=== PATIENT | female | born 1975 | race Caucasian/White ===

== ENCOUNTER 2017-01-14 14:21 | Emergency (ER) | payer MEDICAID ==
[2017-01-14 14:52] VITALS: BP 123/92; PULSE 89; RESP 18; TEMP 99.1; O2SAT 93
[2017-01-14 14:52] LABS: COLOR YELLOW; LEUKOCYTE ESTERASE,URINE NEGATIVE (NEGATIVE); NITRITE,URINE NEGATIVE (NEGATIVE)
[2017-01-14 15:04] LABS: BACTERIA 2+ /hpf (NONE SEEN); RBC,URINE 25-50 /hpf (0-3)
--- NOTE | 2017-01-14 15:32 | UCPHY ---
H & P Time Seen by Provider: 01/14/17 15:04 Patient Type: New HPI/ROS: This patient complains of right-sided lumbar back pain. She states that this is achy in nature and she explains that she has some chronic back pain is usually mild was this is currently moderate intensity. She wonders if it may be her kidney that is causing the pain. She notes no clear exacerbating or alleviating factors except that the pain seems to worsen but with forward flexion. ROS: No fevers or chills. She denies any other constitutional symptoms. HEENT : No complaints pulmonary: No cough. Cardiovascular: No complaints. GI: She has some abdominal cramping and diarrhea for weeks the that waxes and wanes. She has no other GI symptoms. She has no abdominal pain. No nausea vomiting. : Currently on her menses which is normal timing for her. She reports chronic mild dysuria with no recent change. Prior to her menses she had her baseline minimal vaginal discharge with no recent change. 10 point ROS is otherwise negative Past Medical/Surgical History: Fibromyalgia Migraines Mixed connective tissue disorder. Smoking Status: Never smoked Physical Exam: General Appearance: Alert, no distress. Eyes: Pupils equal and round no pallor or injection. ENT, Mouth: Mucous membranes moist. Respiratory: There are no retractions, lungs are clear to auscultation. Cardiovascular: Regular rate and rhythm. Gastrointestinal: Abdomen is soft and nontender, no masses, bowel sounds normal. Back: Mild right paraspinous muscular tenderness that reproduces her symptoms. No CVA tenderness is noted. No midline tenderness. Straight leg raise is negative bilaterally. She retains good range of motion in forward flexion but has increased pain in the affected area with back extension. Neurological: Alert. She has no light touch sensory deficits in her lower extremities. She maintains 5/5 strength in great toe dorsiflexion plantar flexion bilaterally and 2+ symmetric patellar and Achilles DTRs bilaterally Skin: Warm and dry, no rashes. Musculoskeletal: Neck is supple nontender. Extremities are symmetrical, full range of motion. Psychiatric: Mood and affect are normal DIFFERENTIAL DIAGNOSIS: After history and physical exam differential diagnosis was considered for low back strain, doubt kidney stone, rule out UTI Constitutional: Initial Vital Signs Temperature (C) 37.3 C 01/14/17 14:49 Heart Rate 89 01/14/17 14:49 Respiratory Rate 18 01/14/17 14:49 Blood Pressure 123/92 H 01/14/17 14:49 O2 Sat (%) 93 01/14/17 14:49 O2 Delivery Mode Room Air Allergies/Adverse Reactions: barium iodide [Barium Iodide] Allergy (Verified 01/14/17 14:47) barium sulfate Allergy (Verified 01/14/17 14:47) beeswax Allergy (Verified 01/14/17 14:47) honey Allergy (Verified 01/14/17 14:47) latex Allergy (Verified 01/14/17 14:47) meperidine HCl [From Demerol] Allergy (Verified 01/14/17 14:47) cashews Allergy (Uncoded 01/14/17 14:47) teo Allergy (Uncoded 01/14/17 14:47) Home Medications: Medication Instructions Recorded Flexeril 5 MG (RX) 11/15/13 Micronor 11/19/13 Cephalexin [Keflex (*)] 500 mg PO TID #21 cap 01/14/17 Methocarbamol [Robaxin 750 mg (*)] 750 - 1,500 mg PO QID PRN #30 tab 01/14/17 MDM/Departure - MDM Diagnostics: Urinalysis reveals findings suggestive of cystitis. She also has bloody urine the think this is attributable to her menses. ED Course/Re-evaluation: Findings are most consistent with low back strain as well as cystitis. I counseled patient regarding this. I demonstrated some stretches for her low back discomfort. - Depart Disposition: Home, Routine, Self-Care Clinical Impression: Cystitis Low back strain Qualifiers: Encounter type: initial encounter Qualified Code(s): S39.012A - Strain of muscle, fascia and tendon of lower back, initial encounter Condition: Good Instructions: Urinary Tract Infection in Women (ED), Low Back Strain (ED) Additional Instructions: DX: Low back strain 2. Bladder infection Plan: Ibuprofen 400-600 mg per 6 hours regularly for the next week then as needed. Methocarbamol muscle relaxants as needed. Tylenol in addition as needed for pain. Starts daily stretches prior to taking muscle relaxants in the morning. 3-5 minutes each of: "Butterfly stretch," "Sphinx stretch", "pigeon stretch", and hamstring stretch. Avoid lifting more than 5-10 pounds until symptoms improve. Keflex antibiotic for the bladder infection. Call your primary care physician for a followup appointment in 3-7 days. Go to the emergency department for worsening of your symptoms despite the treatment plan. Prescriptions: Cephalexin [Keflex (*)] 500 mg PO TID #21 cap Methocarbamol [Robaxin 750 mg (*)] 750 - 1,500 mg PO QID PRN #30 tab PRN Reason: Muscle Spasms Referrals: ROBBIE WAITE,. [Primary Care Provider] - As per Instructions - PQRS PQRS Measurement: NA
== END 2017-01-14 15:44 | disposition home or self-care (01) ==
LOC: CED 14:21
DX: N30.00 Acute cystitis without hematuria (principal); S39.012A Strain of muscle, fascia and tendon of lower back, initial encounter; X58.XXXA Exposure to other specified factors, initial encounter
CPT/HCPCS: 81003-PO; 81015-PO; 99203-PO; G0463-PO

== ENCOUNTER → 2018-02-08 | Outpatient (CLI) | payer MEDICAID | LOC: FIMAGING 13:15 | PROVIDERS: ATTEND Nurse Practitioner Women's Health | DX: Z12.31 Encounter for screening mammogram for malignant neoplasm of breast (principal) ==

== ENCOUNTER → 2018-02-13 | Outpatient (CLI) | payer MEDICAID | LOC: FIMAGING 14:38 | PROVIDERS: ATTEND Nurse Practitioner Women's Health | DX: R10.2 Pelvic and perineal pain (principal) ==